=== PATIENT | male | born 1960 | race African-American/Black ===

== ENCOUNTER 2017-05-07 14:57 | Emergency (ER) | payer MEDICAID ==
[~2017-05-07] VITALS: Ht 170.2 cm; Wt 60.0 kg
[2017-05-07] MEDS ORDERED: FAMOTIDINE 20MG/2ML VIAL IV STA (16:14)
[2017-05-07] MEDS ORDERED: SODIUM CHLORIDE 0.9% 1,000 ML IV ONE (16:14)
[2017-05-07] MEDS ORDERED: ONDANSETRON HCL 4MG/2ML VIAL IV STA (16:14)
[2017-05-07] MEDS ORDERED: ACETAMINOPHEN 325MG TABLET PO STA (16:30)
[2017-05-07] MEDS ORDERED: SODIUM CHLORIDE 0.9% 1000ML BAG (SEPSIS BOLUS) IV ONE (16:30)
[2017-05-07 17:05] LABS: HEMATOCRIT. 46.6 % (42.0-52.0); HEMOGLOBIN. 16.1 g/dL (14.0-18.0); MEAN CORPUSCULAR HEMOGLOBIN 31.3 pg (28.0-32.0); MEAN CORPUSCULAR VOLUME 90.6 fL (80.0-94.0); MEAN PLATELET VOLUME 10.2 fl (7.4-10.4); PLATELET 72 x1000/uL (130-400); RED BLOOD CELL COUNT 5.14 mill/uL (4.7-6.1); RED CELL DISTRIBUTION WIDTH 12.6 % (11.6-14.6)
[2017-05-07 17:17] LABS: CARBON DIOXIDE 23 mEq/L (21-32); CHLORIDE 97 mEq/L (98-107)
[2017-05-07 17:21] LABS: TROPONIN I < 0.02 ng/mL (0.00-0.04)
[2017-05-07 17:38] LABS: INR 1.1; PROTHROMBIN TIME 11.2 sec (9.4-11.6)
[2017-05-07 18:00] LABS: ATYPICAL LYMPHOCYTES 2; PLATELET ESTIMATE MARKEDLY DECREASED
[2017-05-07 18:21] LABS: CLARITY URINE CLEAR (CLEAR); COLOR URINE YELLOW (YELLOW); KETONES URINE NEGATIVE (NEGATIVE); LEUKOCYTE ESTERASE URINE NEGATIVE (NEGATIVE); NITRITE URINE NEGATIVE (NEGATIVE); OCCULT BLOOD URINE TRACE (NEGATIVE); PROTEIN URINE NEGATIVE (NEGATIVE); SPECIFIC GRAVITY URINE 1.012 (1.005-1.030)
[2017-05-07] MEDS ORDERED: IOHEXOL-300 100 ML BOTTLE ONE (19:16)
[2017-05-07 19:59] VITALS: BP 128/80
== END 2017-05-07 21:15 | disposition left against medical advice (07) ==
LOC: ER 15:31 → ENRESERV 20:58 → CANRESERV 20:58 → ER 21:15 → CANBEDREQ 23:05
DX: E87.1 Hypo-osmolality and hyponatremia (principal); R50.9 Fever, unspecified; R10.9 Unspecified abdominal pain; F17.200 Nicotine dependence, unspecified, uncomplicated; F15.90 Other stimulant use, unspecified, uncomplicated
CPT/HCPCS: 36415; 71010; 74177; 80053; 81001; 83605; 83690; 83880; 84484; 85025; 85610; 87040; 87086; 87804; 93005; 96361; 96374; 96375; 99285; J2405; J3490; J7030; Q9967; Z7610